=== PATIENT | female | born 1970 | race Caucasian/White ===

== ENCOUNTER 2022-06-07 07:23 | Day surgery (SDC) | payer OTHER ==
[2022-06-05 16:14] VITALS: BMI 20.2
[2022-06-07] MEDS ORDERED: KETAMINE HCL 500 MG/10 ML VIAL ONE (08:48)
[2022-06-07] MEDS ORDERED: ACETAMINOPHEN 325 MG TABLET (FP) PO ONE (09:25)
[2022-06-07 11:23] VITALS: RESP 16; TEMP 97.7
[2022-06-07 11:25] VITALS: BP 122/76; PULSE 68
== END 2022-06-07 11:40 | disposition home or self-care (01) ==
LOC: FECT 07:23
PROVIDERS: ATTEND Psychiatry & Neurology Psychiatry
PROC: GZB4ZZZ Other Electroconvulsive Therapy (ICD-10-PCS; principal; 2022-06-07 09:11)
DX: F32.A Depression, unspecified (principal)
CPT/HCPCS: 81025; 90870; 94760

== ENCOUNTER 2022-06-12 06:05 | Day surgery (SDC) | payer OTHER ==
[2022-06-07 16:45] VITALS: BMI 19.5
[2022-06-12] MEDS ORDERED: KETAMINE HCL 500 MG/10 ML VIAL ONE (07:29)
[2022-06-12 08:05] VITALS: TEMP 97.8
[2022-06-12 08:56] VITALS: RESP 18
[2022-06-12 09:17] VITALS: BP 121/61; PULSE 59
== END 2022-06-12 09:30 | disposition home or self-care (01) ==
LOC: FECT 06:05
PROVIDERS: ATTEND Psychiatry & Neurology Psychiatry
PROC: GZB4ZZZ Other Electroconvulsive Therapy (ICD-10-PCS; principal; 2022-06-12 07:40)
DX: F32.A Depression, unspecified (principal)
CPT/HCPCS: 81025; 90870; 94760; C9803-CS; U0003; U0005

== ENCOUNTER 2022-06-15 06:07 | Day surgery (SDC) | payer OTHER ==
[2022-06-12 14:11] VITALS: BMI 19.5
[2022-06-15] MEDS ORDERED: KETOROLAC TROMETHAMINE 30 MG/1 ML VIAL ONE (07:24)
[2022-06-15] MEDS ORDERED: KETAMINE HCL 500 MG/10 ML VIAL ONE (07:24)
[2022-06-15] MEDS ORDERED: PROPOFOL 20 ML ONE (07:27)
[2022-06-15] MEDS ORDERED: SUCCINYLCHOLINE CHLORIDE 200 MG/10 ML SYRINGE ONE (07:28)
[2022-06-15 08:44] VITALS: RESP 18; TEMP 98.7
[2022-06-15 09:02] VITALS: BP 130/70; PULSE 59
[2022-06-15] MEDS ORDERED: ONDANSETRON 4 MG/2 ML VIAL IVPUSH PRN (09:52)
== END 2022-06-15 09:10 | disposition home or self-care (01) ==
LOC: FECT 06:07
PROVIDERS: ATTEND Psychiatry & Neurology Psychiatry
PROC: GZB4ZZZ Other Electroconvulsive Therapy (ICD-10-PCS; principal; 2022-06-15 07:40)
DX: F32.A Depression, unspecified (principal)
CPT/HCPCS: 90870; 94760; C9803-CS; U0003; U0005

== ENCOUNTER 2022-06-22 06:09 | Day surgery (SDC) | payer OTHER ==
[2022-06-19 13:39] VITALS: BMI 19.5
[2022-06-22] MEDS ORDERED: KETAMINE HCL 500 MG/10 ML VIAL ONE (07:19)
[2022-06-22] MEDS ORDERED: PROPOFOL 20 ML ONE (07:37)
[2022-06-22] MEDS ORDERED: ONDANSETRON 4 MG/2 ML VIAL IVPUSH PRN (07:59)
[2022-06-22] MEDS ORDERED: ACETAMINOPHEN 325 MG TABLET (FP) PO PRN (07:59)
[2022-06-22] MEDS ORDERED: LACTATED RINGERS SOLUTION 1,000 ML IV SCH (08:00)
[2022-06-22] MEDS ORDERED: SUCCINYLCHOLINE CHLORIDE 200 MG/10 ML SYRINGE ONE (08:09)
[2022-06-22 08:48] VITALS: RESP 18; TEMP 97.8
[2022-06-22 09:06] VITALS: BP 121/76; PULSE 61
== END 2022-06-22 09:10 | disposition home or self-care (01) ==
LOC: FECT 06:09
PROVIDERS: ATTEND Psychiatry & Neurology Psychiatry
PROC: GZB4ZZZ Other Electroconvulsive Therapy (ICD-10-PCS; principal; 2022-06-22 07:43)
DX: F33.2 Major depressive disorder, recurrent severe without psychotic features (principal)
CPT/HCPCS: 90870; 94760; C9803-CS; U0003; U0005

== ENCOUNTER 2022-06-26 06:16 | Day surgery (SDC) | payer OTHER ==
[2022-06-25 16:04] VITALS: BMI 19.5
[2022-06-26] MEDS ORDERED: KETAMINE HCL 500 MG/10 ML VIAL ONE (07:28)
[2022-06-26 09:12] VITALS: BP 121/59; PULSE 66; RESP 18; TEMP 98
== END 2022-06-26 09:10 | disposition home or self-care (01) ==
LOC: FECT 06:16
PROVIDERS: ATTEND Psychiatry & Neurology Psychiatry
PROC: GZB4ZZZ Other Electroconvulsive Therapy (ICD-10-PCS; principal; 2022-06-26 07:47)
DX: F33.2 Major depressive disorder, recurrent severe without psychotic features (principal)
CPT/HCPCS: 81025; 90870; 94760

== ENCOUNTER 2022-07-02 06:26 | Day surgery (SDC) | payer OTHER ==
[2022-06-15 09:21] VITALS: BMI 19.5
[2022-07-02] MEDS ORDERED: KETAMINE HCL 500 MG/10 ML VIAL ONE (07:23)
[2022-07-02 08:40] VITALS: RESP 18; TEMP 97.7
[2022-07-02 09:02] VITALS: BP 108/70; PULSE 77
== END 2022-07-02 09:05 | disposition home or self-care (01) ==
LOC: FECT 06:26
PROVIDERS: ATTEND Psychiatry & Neurology Psychiatry
PROC: GZB4ZZZ Other Electroconvulsive Therapy (ICD-10-PCS; principal; 2022-07-02 07:42)
DX: F33.2 Major depressive disorder, recurrent severe without psychotic features (principal)
CPT/HCPCS: 81025; 90870; 94760

== ENCOUNTER 2022-07-12 07:12 | Day surgery (SDC) | payer OTHER ==
[2022-07-10 09:57] VITALS: BMI 19.5
[2022-07-12 09:30] VITALS: TEMP 97.8
[2022-07-12 09:33] VITALS: RESP 12
[2022-07-12 12:30] VITALS: BP 110/52; PULSE 68
== END 2022-07-12 10:10 | disposition home or self-care (01) ==
LOC: FECT 07:12
PROVIDERS: ATTEND Psychiatry & Neurology Psychiatry
PROC: GZB4ZZZ Other Electroconvulsive Therapy (ICD-10-PCS; principal; 2022-07-12 09:07)
DX: F32.A Depression, unspecified (principal)
CPT/HCPCS: 71046-TC-FY; 81025; 90870; 93005; 93010; 94760

== ENCOUNTER 2022-07-20 06:13 | Day surgery (SDC) | payer OTHER ==
[2022-07-17 16:04] VITALS: BMI 19.5
[2022-07-20] MEDS ORDERED: KETAMINE HCL 200 MG/20 ML VIAL ONE (07:08)
[2022-07-20 09:05] VITALS: TEMP 97.8
[2022-07-20 09:12] VITALS: BP 113/55; PULSE 56; RESP 18
== END 2022-07-20 09:15 | disposition home or self-care (01) ==
LOC: FECT 06:13
PROVIDERS: ATTEND Psychiatry & Neurology Psychiatry
PROC: GZB4ZZZ Other Electroconvulsive Therapy (ICD-10-PCS; principal; 2022-07-20 08:09)
DX: F32.A Depression, unspecified (principal)
CPT/HCPCS: 81025; 90870; 94760; C9803-CS; U0003; U0005

== ENCOUNTER 2022-07-24 06:04 | Day surgery (SDC) | payer OTHER ==
[2022-07-17 16:11] VITALS: BMI 19.5
[2022-07-24] MEDS ORDERED: KETAMINE HCL 500 MG/10 ML VIAL ONE (07:29)
[2022-07-24 08:30] VITALS: RESP 18; TEMP 97
[2022-07-24 08:53] VITALS: BP 132/65; PULSE 60
== END 2022-07-24 08:58 | disposition home or self-care (01) ==
LOC: FECT 06:04
PROVIDERS: ATTEND Psychiatry & Neurology Psychiatry
PROC: GZB4ZZZ Other Electroconvulsive Therapy (ICD-10-PCS; principal; 2022-07-24 07:43)
DX: F32.A Depression, unspecified (principal)
CPT/HCPCS: 81025; 90870; 94760; C9803-CS; U0003; U0005

== ENCOUNTER 2022-07-27 05:56 | Day surgery (SDC) | payer OTHER ==
[2022-07-20 08:42] VITALS: BMI 19.5
[2022-07-27] MEDS ORDERED: KETAMINE HCL 500 MG/10 ML VIAL ONE (07:18)
[2022-07-27 08:15] VITALS: RESP 16
[2022-07-27 08:26] VITALS: TEMP 98.4
[2022-07-27 08:40] VITALS: BP 125/65; PULSE 65
== END 2022-07-27 08:47 | disposition home or self-care (01) ==
LOC: FECT 05:56
PROVIDERS: ATTEND Psychiatry & Neurology Psychiatry
PROC: GZB4ZZZ Other Electroconvulsive Therapy (ICD-10-PCS; principal; 2022-07-27 07:34)
DX: F33.2 Major depressive disorder, recurrent severe without psychotic features (principal)
CPT/HCPCS: 81025; 90870; 94760; C9803-CS; U0003; U0005

== ENCOUNTER 2022-07-31 06:01 | Day surgery (SDC) | payer OTHER ==
[2022-07-25 08:08] VITALS: BMI 19.5
[2022-07-31] MEDS ORDERED: KETAMINE HCL 500 MG/10 ML VIAL ONE (07:30)
[2022-07-31 08:36] VITALS: RESP 18; TEMP 98
[2022-07-31 09:04] VITALS: BP 112/56; PULSE 73
[2022-07-31] MEDS ORDERED: ACETAMINOPHEN 500 MG TABLET (FP) PO PRN (10:26)
[2022-07-31] MEDS ORDERED: PROMETHAZINE HCL 25 MG/1 ML VIAL IVPUSH PRN (10:26)
[2022-07-31] MEDS ORDERED: LACTATED RINGERS SOLUTION 1,000 ML IV SCH (10:30)
== END 2022-07-31 09:00 | disposition home or self-care (01) ==
LOC: FECT 06:01
PROVIDERS: ATTEND Psychiatry & Neurology Psychiatry
PROC: GZB4ZZZ Other Electroconvulsive Therapy (ICD-10-PCS; principal; 2022-07-31 07:41)
DX: F32.A Depression, unspecified (principal)
CPT/HCPCS: 81025; 90870; 94760; C9803-CS; U0003; U0005

== ENCOUNTER 2022-08-03 06:12 | Day surgery (SDC) | payer OTHER ==
[2022-07-25 08:29] VITALS: BMI 19.5
[2022-08-03] MEDS ORDERED: KETAMINE HCL 200 MG/20 ML VIAL ONE (07:03)
[2022-08-03 08:35] VITALS: BP 111/69; PULSE 58; RESP 18; TEMP 98.2
== END 2022-08-03 08:35 | disposition home or self-care (01) ==
LOC: FECT 06:12
PROVIDERS: ATTEND Psychiatry & Neurology Psychiatry
PROC: GZB4ZZZ Other Electroconvulsive Therapy (ICD-10-PCS; principal; 2022-08-03 07:30)
DX: F32.A Depression, unspecified (principal)
CPT/HCPCS: 90870; 94760; C9803-CS; U0003; U0005

== ENCOUNTER 2022-08-07 05:57 | Day surgery (SDC) | payer OTHER ==
[2022-07-13 09:26] VITALS: BMI 19.5
[2022-08-07] MEDS ORDERED: KETAMINE HCL 500 MG/10 ML VIAL ONE (07:20)
[2022-08-07] MEDS ORDERED: SUCCINYLCHOLINE CHLORIDE 200 MG/10 ML SYRINGE ONE (07:36)
[2022-08-07 07:59] VITALS: TEMP 98.3
[2022-08-07 08:20] VITALS: RESP 18
[2022-08-07 09:02] VITALS: BP 115/61; PULSE 56
== END 2022-08-07 08:40 | disposition home or self-care (01) ==
LOC: FECT 05:57
PROVIDERS: ATTEND Psychiatry & Neurology Psychiatry
PROC: GZB4ZZZ Other Electroconvulsive Therapy (ICD-10-PCS; principal; 2022-08-07 07:34)
DX: F32.A Depression, unspecified (principal)
CPT/HCPCS: 81025; 90870; 94760; C9803-CS; U0003; U0005

== ENCOUNTER 2022-08-09 05:59 | Day surgery (SDC) | payer OTHER ==
[2022-08-09 06:38] VITALS: BMI 19.5
[2022-08-09] MEDS ORDERED: KETAMINE HCL 500 MG/10 ML VIAL ONE (07:26)
[2022-08-09 08:25] VITALS: RESP 18; TEMP 97.8
[2022-08-09 08:43] VITALS: BP 122/72; PULSE 63
== END 2022-08-09 08:47 | disposition home or self-care (01) ==
LOC: FECT 05:59
PROVIDERS: ATTEND Psychiatry & Neurology Psychiatry
PROC: GZB4ZZZ Other Electroconvulsive Therapy (ICD-10-PCS; principal; 2022-08-09 07:40)
DX: F32.A Depression, unspecified (principal)
CPT/HCPCS: 90870; 94760

== ENCOUNTER 2022-08-17 06:12 | Day surgery (SDC) | payer OTHER ==
[2022-08-13 08:45] VITALS: BMI 19.5
[2022-08-17] MEDS ORDERED: KETAMINE HCL 500 MG/10 ML VIAL ONE (07:31)
[2022-08-17 08:20] VITALS: TEMP 98.8
[2022-08-17 08:38] VITALS: BP 111/61; PULSE 77; RESP 16
[2022-08-17] MEDS ORDERED: GLYCOPYRROLATE 0.2 MG/1 ML VIAL ONE (09:11)
[2022-08-17] MEDS ORDERED: ONDANSETRON 4 MG/2 ML VIAL IVPUSH PRN (10:51)
[2022-08-17] MEDS ORDERED: ACETAMINOPHEN 500 MG TABLET (FP) PO PRN (10:51)
[2022-08-17] MEDS ORDERED: PROMETHAZINE HCL 25 MG/1 ML VIAL IVPUSH PRN (10:51)
[2022-08-17] MEDS ORDERED: LACTATED RINGERS SOLUTION 1,000 ML IV SCH (11:00)
== END 2022-08-17 08:43 | disposition home or self-care (01) ==
LOC: FECT 06:12
PROVIDERS: ATTEND Psychiatry & Neurology Psychiatry
PROC: GZB4ZZZ Other Electroconvulsive Therapy (ICD-10-PCS; principal; 2022-08-17 07:42)
DX: F32.A Depression, unspecified (principal)
CPT/HCPCS: 81025; 90870; 94760; C9803-CS; U0003; U0005

== ENCOUNTER 2022-08-21 06:12 | Day surgery (SDC) | payer OTHER ==
[2022-08-14 16:27] VITALS: BMI 19.5
[2022-08-21] MEDS ORDERED: KETAMINE HCL 500 MG/10 ML VIAL ONE (07:55)
[2022-08-21 08:53] VITALS: RESP 18
[2022-08-21 08:57] VITALS: TEMP 97.6
[2022-08-21 09:13] VITALS: BP 125/69; PULSE 61
== END 2022-08-21 09:15 | disposition home or self-care (01) ==
LOC: FECT 06:12
PROVIDERS: ATTEND Psychiatry & Neurology Psychiatry
PROC: GZB4ZZZ Other Electroconvulsive Therapy (ICD-10-PCS; principal; 2022-08-21 08:03)
DX: F32.A Depression, unspecified (principal)
CPT/HCPCS: 81025; 90870; 94760; C9803-CS; U0003; U0005

== ENCOUNTER 2022-08-31 06:18 | Day surgery (SDC) | payer OTHER ==
[2022-08-15 15:17] VITALS: BMI 19.5
[2022-08-31] MEDS ORDERED: KETAMINE HCL 200 MG/20 ML VIAL ONE (07:34)
[2022-08-31 08:31] VITALS: RESP 18; TEMP 98.2
[2022-08-31 08:49] VITALS: BP 122/60; PULSE 60
== END 2022-08-31 08:53 | disposition home or self-care (01) ==
LOC: FECT 06:18
PROVIDERS: ATTEND Psychiatry & Neurology Psychiatry
PROC: GZB4ZZZ Other Electroconvulsive Therapy (ICD-10-PCS; principal; 2022-08-31 07:44)
DX: F32.A Depression, unspecified (principal)
CPT/HCPCS: 81025; 90870; 94760

== ENCOUNTER 2022-09-18 07:35 | Day surgery (SDC) | payer OTHER ==
[2022-08-20 16:45] VITALS: BMI 19.5
[2022-09-18] MEDS ORDERED: KETAMINE HCL 500 MG/10 ML VIAL ONE (09:19)
[2022-09-18] MEDS ORDERED: SUCCINYLCHOLINE CHLORIDE 200 MG/10 ML SYRINGE ONE (09:38)
[2022-09-18 11:10] VITALS: RESP 18
[2022-09-18 11:16] VITALS: BP 101/77; PULSE 61; TEMP 98
== END 2022-09-18 11:20 | disposition home or self-care (01) ==
LOC: FECT 07:35
PROVIDERS: ATTEND Psychiatry & Neurology Psychiatry
PROC: GZB4ZZZ Other Electroconvulsive Therapy (ICD-10-PCS; principal; 2022-09-18 09:32)
DX: F32.A Depression, unspecified (principal)
CPT/HCPCS: 84703; 90870; 94760; C9803-CS; U0003; U0005

== ENCOUNTER 2022-09-21 06:08 | Day surgery (SDC) | payer OTHER ==
[2022-09-19 14:14] VITALS: BMI 19.5
[2022-09-21] MEDS ORDERED: ONDANSETRON 4 MG/2 ML VIAL ONE (07:21)
[2022-09-21] MEDS ORDERED: KETOROLAC TROMETHAMINE 30 MG/1 ML VIAL ONE (07:21)
[2022-09-21] MEDS ORDERED: KETAMINE HCL 500 MG/10 ML VIAL ONE (07:21)
[2022-09-21] MEDS ORDERED: PROPOFOL 20 ML ONE (07:34)
[2022-09-21] MEDS ORDERED: LIDOCAINE HCL/PF 2% SDV 5ML VIAL ONE (07:34)
[2022-09-21] MEDS ORDERED: SUCCINYLCHOLINE CHLORIDE 200 MG/10 ML SYRINGE ONE (07:34)
[2022-09-21 08:28] VITALS: RESP 16; TEMP 98.4
[2022-09-21 08:46] VITALS: BP 131/71; PULSE 55
== END 2022-09-21 08:55 | disposition home or self-care (01) ==
LOC: FECT 06:08
PROVIDERS: ATTEND Psychiatry & Neurology Psychiatry
PROC: GZB4ZZZ Other Electroconvulsive Therapy (ICD-10-PCS; principal; 2022-09-21 07:42)
DX: F32.A Depression, unspecified (principal)
CPT/HCPCS: 90870; 94760

== ENCOUNTER 2022-09-28 10:35 | Day surgery (SDC) | payer OTHER ==
[2022-09-24 08:40] VITALS: BMI 19.5
[2022-09-28] MEDS ORDERED: KETAMINE HCL 500 MG/10 ML VIAL ONE (12:08)
[2022-09-28 12:37] VITALS: RESP 16; TEMP 98.3
[2022-09-28 13:46] VITALS: BP 120/74; PULSE 64
== END 2022-09-28 13:50 | disposition home or self-care (01) ==
LOC: FECT 10:35
PROVIDERS: ATTEND Psychiatry & Neurology Psychiatry
PROC: GZB4ZZZ Other Electroconvulsive Therapy (ICD-10-PCS; principal; 2022-09-28 12:19)
DX: F32.A Depression, unspecified (principal)
CPT/HCPCS: 81025; 90870; 94760

== ENCOUNTER 2022-10-19 07:45 | Day surgery (SDC) | payer OTHER ==
[2022-10-11 11:52] VITALS: BMI 19.5
[2022-10-19] MEDS ORDERED: KETAMINE HCL 500 MG/10 ML VIAL ONE (10:00)
[2022-10-19 10:43] VITALS: TEMP 97.8
[2022-10-19 11:00] VITALS: RESP 18
[2022-10-19 12:09] VITALS: BP 130/66; PULSE 64
== END 2022-10-19 11:30 | disposition home or self-care (01) ==
LOC: FECT 07:45
PROVIDERS: ATTEND Psychiatry & Neurology Psychiatry
PROC: GZB4ZZZ Other Electroconvulsive Therapy (ICD-10-PCS; principal; 2022-10-19 10:14)
DX: F32.A Depression, unspecified (principal)
CPT/HCPCS: 81025; 90870; 94760

== ENCOUNTER 2022-10-26 06:15 | Day surgery (SDC) | payer OTHER ==
[2022-10-01 12:31] VITALS: BMI 19.5
[2022-10-26] MEDS ORDERED: KETAMINE HCL 500 MG/10 ML VIAL ONE (08:05)
[2022-10-26 09:29] VITALS: RESP 18
[2022-10-26 09:30] VITALS: BP 98/50; PULSE 61; TEMP 98.4
== END 2022-10-26 09:35 | disposition home or self-care (01) ==
LOC: FECT 06:15
PROVIDERS: ATTEND Psychiatry & Neurology Psychiatry
PROC: GZB4ZZZ Other Electroconvulsive Therapy (ICD-10-PCS; principal; 2022-10-26 08:22)
DX: F32.A Depression, unspecified (principal)
CPT/HCPCS: 81025; 90870; 94760

== ENCOUNTER 2022-11-02 07:54 | Day surgery (SDC) | payer OTHER ==
[2022-10-30 12:02] VITALS: BMI 19.5
[2022-11-02 08:22] VITALS: RESP 16
[2022-11-02] MEDS ORDERED: KETAMINE HCL 500 MG/10 ML VIAL ONE (09:41)
[2022-11-02 11:09] VITALS: TEMP 98
[2022-11-02 11:11] VITALS: BP 138/60; PULSE 66
== END 2022-11-02 11:10 | disposition home or self-care (01) ==
LOC: FECT 07:54
PROVIDERS: ATTEND Psychiatry & Neurology Psychiatry
PROC: GZB4ZZZ Other Electroconvulsive Therapy (ICD-10-PCS; principal; 2022-11-02 10:01)
DX: F33.2 Major depressive disorder, recurrent severe without psychotic features (principal)
CPT/HCPCS: 90870; 94760

== ENCOUNTER 2022-12-04 07:31 | Day surgery (SDC) | payer OTHER ==
[2022-11-06 12:42] VITALS: BMI 19.5
[2022-12-04] MEDS ORDERED: KETAMINE HCL 500 MG/10 ML VIAL ONE (10:11)
[2022-12-04 12:08] VITALS: TEMP 98.2
[2022-12-04 12:10] VITALS: RESP 17
[2022-12-04 12:14] VITALS: BP 127/68; PULSE 60
== END 2022-12-04 11:45 | disposition home or self-care (01) ==
LOC: FECT 07:31
PROVIDERS: ATTEND Psychiatry & Neurology Psychiatry
PROC: GZB4ZZZ Other Electroconvulsive Therapy (ICD-10-PCS; principal; 2022-12-04 10:21)
DX: F33.2 Major depressive disorder, recurrent severe without psychotic features (principal)
CPT/HCPCS: 90870; 93005; 93010; 94760

== ENCOUNTER 2023-01-01 07:59 | Day surgery (SDC) | payer OTHER ==
[2023-01-01 08:18] VITALS: BMI 21.9
[2023-01-01 09:09] LABS: ALBUMIN 4.3 g/dl (3.4-5.0); BILIRUBIN,TOTAL 0.2 mg/dl (0.2-1); CALCIUM 9.2 mg/dl (8.5-10); CREATININE 0.7 mg/dl (0.55-1.3); TOT PROT 6.8 g/dl (6.4-8.2)
[2023-01-01] MEDS ORDERED: KETAMINE HCL 500 MG/10 ML VIAL ONE (09:09)
[2023-01-01 09:52] LABS: BASO % 0.8 % (0-2.0); EOS % 3.6 % (0-4.5); HEMATOCRIT 39.5 % (32.4-45.2); HEMOGLOBIN 13.3 GM/dL (10.7-15.3); LYMPH % 31.4 % (8-40); MCH 31.9 pg (25.7-33.7); MCHC 33.7 g/dl (32.0-36.0); MEAN CELL VOLUME 94.7 fl (80-96); MEAN PLT VOLUME 7.7 fl (7.5-11.1); MONO % 11.9 % (3.8-10.2); NEUT % 52.3 % (42.8-82.8); PLATELET COUNT 263 10^3/uL (134-434); RBC 4.17 M/mm3 (3.60-5.2); RDW 13.5 % (11.6-15.6); WHITE BLOOD COUNT 3.6 K/mm3 (4.0-10.0)
[2023-01-01 10:01] VITALS: RESP 16
[2023-01-01 10:13] VITALS: TEMP 97.8
[2023-01-01 10:37] VITALS: BP 130/74; PULSE 67
== END 2023-01-01 10:39 | disposition home or self-care (01) ==
LOC: FECT 07:59
PROVIDERS: ATTEND Psychiatry & Neurology Psychiatry
PROC: GZB4ZZZ Other Electroconvulsive Therapy (ICD-10-PCS; principal; 2023-01-01 09:21)
DX: F32.A Depression, unspecified (principal)
CPT/HCPCS: 36415; 80053; 85025; 90870; 94760

== ENCOUNTER 2023-02-05 09:49 | Day surgery (SDC) | payer OTHER ==
[2023-01-29 11:59] VITALS: BMI 22.0
[2023-02-05] MEDS ORDERED: KETAMINE HCL 500 MG/10 ML VIAL ONE (12:08)
[2023-02-05 12:51] VITALS: RESP 16
[2023-02-05] MEDS ORDERED: LORazepam 2 MG/ML SDV VIAL IVPUSH ONE (13:26)
[2023-02-05] MEDS ORDERED: ACETAMINOPHEN 325 MG TABLET (FP) ONE (13:56)
[2023-02-05] MEDS ORDERED: ACETAMINOPHEN 325 MG TABLET (FP) PO PRN (14:04)
[2023-02-05 14:08] VITALS: BP 130/70; PULSE 74; TEMP 97.7
[2023-02-05] MEDS ORDERED: LACTATED RINGERS SOLUTION 1,000 ML IV SCH (14:15)
== END 2023-02-05 14:30 | disposition home or self-care (01) ==
LOC: FECT 09:49
PROVIDERS: ATTEND Psychiatry & Neurology Psychiatry
PROC: GZB4ZZZ Other Electroconvulsive Therapy (ICD-10-PCS; principal; 2023-02-05 12:24)
DX: F33.2 Major depressive disorder, recurrent severe without psychotic features (principal)
CPT/HCPCS: 90870; 94760